=== PATIENT | male | born 1990 | race African-American/Black ===

== ENCOUNTER 2022-10-16 11:43 | Inpatient (IN) | payer OTHER ==
[~2022-10-16] VITALS: Ht 172.7 cm; Wt 82.5 kg
[2022-10-16 14:29] LABS: AMPHETAMINES LEVEL URINE NEGATIVE (NEGATIVE); BARBITURATES URINE NEGATIVE (NEGATIVE); BENZODIAZEPINES URINE NEGATIVE (NEGATIVE); CANNABINOIDS URINE NEGATIVE (NEGATIVE); COCAINE METABOLITE URINE NEGATIVE (NEGATIVE); METHADONE URINE NEGATIVE (NEGATIVE); OPIATES URINE NEGATIVE (NEGATIVE); PHENCYCLIDINE URINE NEGATIVE (NEGATIVE)
[2022-10-16 15:19] LABS: HEMATOCRIT 42.2 % (42.0-52.0); HEMOGLOBIN 13.6 g/dl (13.5-17.5); MEAN CORPUSCULAR HEMOGLOBIN 26.5 pg (27.0-33.0); MEAN CORPUSCULAR HGB CONC 32.2 g/dl (32.0-36.5); MEAN CORPUSCULAR VOLUME 82.3 fl (80.0-96.0); PLATELET COUNT, AUTOMATED 235 10^3/uL (150-450); RED BLOOD COUNT 5.13 10^6/uL (4.30-6.10); WHITE BLOOD COUNT 5.2 10^3/uL (4.0-10.0)
[2022-10-16 16:14] LABS: RSV AMPLIFICATION NEGATIVE (NEGATIVE)
[2022-10-16 16:21] LABS: ACETAMINOPHEN LEVEL < 2.0 UG/ML (10.0-20.0); ALKALINE PHOSPHATASE 50 U/L (46-116); ALT/SGPT 36 U/L (7.0-40); AST/SGOT 26 U/L (<34); BILIRUBIN,DIRECT < 0.1 MG/DL (<0.4); BILIRUBIN,TOTAL 0.3 MG/DL (0.3-1.2); BLOOD UREA NITROGEN 20 MG/DL (9-23); CALCIUM LEVEL 9.1 MG/DL (8.5-10.1); CARBON DIOXIDE LEVEL 24 MMOL/L (20-31); CHLORIDE LEVEL 105 MMOL/L (98-107); ETHYL ALCOHOL (ETHANOL) 0.003 % (0.000-0.010); GLOMERULAR FILTRATION RATE > 60.0 (>60); GLUCOSE, FASTING 78 MG/DL (60-100); POTASSIUM SERUM 4.8 MMOL/L (3.5-5.1); SODIUM LEVEL 137 MMOL/L (136-145); THYROID STIMULATING HORMONE 2.163 uIU/ML (0.55-4.78); TOTAL PROTEIN 7.6 G/DL (5.7-8.2)
[2022-10-16] MEDS ORDERED: hydrOXYzine 50 MG TAB PO PRN (16:40)
[2022-10-16] MEDS ORDERED: ACETAMINOPHEN TAB 650MG DOSE (2X325MG) PO PRN (16:40)
[2022-10-16] MEDS ORDERED: MAALOX 30 ML SUSP *UDC PO PRN (16:40)
[2022-10-16] MEDS ORDERED: MOM 30ML SUSPENSION UDC PO PRN (16:40)
[2022-10-16 16:47] LABS: SALICYLATE LEVEL < 3.0 MG/DL (<30)
[2022-10-16 18:02] VITALS: BP 126/90
[2022-10-17 06:36] VITALS: BP 134/70
[2022-10-17] MEDS ORDERED: IBUPROFEN 600MG TAB PO PRN (09:40)
[2022-10-17] MEDS ORDERED: SUMAtriptan SUCCINATE 25 MG TAB PO PRN (09:40)
[2022-10-17] MEDS ORDERED: RIZATRIPTAN BENZOATE 10 MG TAB PO PRN (09:40)
[2022-10-17] MEDS ORDERED: FIORICET TAB PO ONE (10:00)
[2022-10-17] MEDS: FLUoxetine 20MG CAP PO SCH (17:16)
[2022-10-17 18:00] VITALS: BP 118/73
[2022-10-18 06:49] VITALS: BP 129/69
[2022-10-18] MEDS: FLUoxetine 20MG CAP PO SCH (09:48)
[2022-10-18 18:18] VITALS: BP 126/71
[2022-10-19 06:36] VITALS: BP 137/82
[2022-10-19] MEDS: FLUoxetine 20MG CAP PO SCH (09:35)
[2022-10-19] MEDS: busPIRone 5 MG TAB PO SCH ×3 (10:37→21:16)
[2022-10-19] MEDS ORDERED: busPIRone 5 MG TAB PO SCH (16:00)
[2022-10-19 16:26] VITALS: BP 132/75
[2022-10-19] MEDS: traZODone 50 MG TAB PO PRN (21:16)
[2022-10-20 06:35] VITALS: BP 132/64
[2022-10-20] MEDS: FLUoxetine 20MG CAP PO SCH (08:46)
[2022-10-20] MEDS: busPIRone 5 MG TAB PO SCH ×3 (08:46→20:58)
[2022-10-20 16:53] VITALS: BP 134/99
[2022-10-20] MEDS: traZODone 50 MG TAB PO PRN (20:58)
[2022-10-21 06:49] VITALS: BP 127/74
[2022-10-21] MEDS: busPIRone 5 MG TAB PO SCH ×3 (09:48→21:02)
[2022-10-21] MEDS: FLUoxetine 20MG CAP PO SCH (09:48)
[2022-10-21] MEDS ORDERED: FLUO20CA22 PO (11:21)
[2022-10-21] MEDS ORDERED: RIZA10TA64 PO (11:21)
[2022-10-21] MEDS ORDERED: BUSP5TA PO (11:21)
[2022-10-21 18:11] VITALS: BP 138/93
[2022-10-21] MEDS: traZODone 50 MG TAB PO PRN (21:02)
[2022-10-22 06:36] VITALS: BP 123/68
[2022-10-22] MEDS: FLUoxetine 20MG CAP PO SCH (09:38)
[2022-10-22] MEDS: busPIRone 5 MG TAB PO SCH (09:38)
[2022-10-22] MEDS ORDERED: BUSP5TA PO (12:41)
[2022-10-22] MEDS ORDERED: TRAZ-252 PO (15:00)
== END 2022-10-22 12:47 | disposition home or self-care (01) | DRG 881 ==
LOC: EDBD 11:43 → M ED 11:43 → M ED INP 16:39 → M PSY 18:00
PROVIDERS: ADMIT Psychiatry & Neurology Psychiatry; ATTEND Psychiatry & Neurology Psychiatry
DX: F43.21 Adjustment disorder with depressed mood (principal); R45.851 Suicidal ideations